=== PATIENT | male | born 1945 | race Caucasian/White ===

== ENCOUNTER 2020-01-01 15:22 | Inpatient (IN) | payer OTHER ==
[~2020-01-01] VITALS: Ht 175.3 cm; Wt 77.6 kg
--- NOTE | ~2020-01-01 | O ---
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 PROCEDURE: Right transmetatarsal foot amputation. SURGEON: Rogers Kong M.D. ANESTHESIA: General. TOURNIQUET TIME: 13 minutes. ESTIMATED BLOOD LOSS: 25 mL. COMPLICATIONS: None. SPECIMENS: Distal foot including bone and soft tissue was sent for pathology. CONDITION UPON LEAVING THE OPERATING ROOM: Stable. INDICATIONS FOR PROCEDURE: The patient is a 74-year-old gentleman with a diabetic foot ulcer. He has had previous amputations of his great toe and second toe. He has had a dorsal wound on his foot with exposed tendon and underlying osteomyelitis of the second metatarsal head. After discussion with him and wound care, we decided for recommended transmetatarsal amputation. DESCRIPTION OF PROCEDURE: Risks, benefits, alternatives, complications were discussed in detail with the patient including, but not limited to risk of anesthesia, risk of continued infection and need for higher level amputation. Informed consent was obtained from the patient. Right foot was appropriately marked in the preoperative holding area. He was already on antibiotics for long-term infection and was brought to the operating room and placed in supine position on operating room table. General anesthesia was induced without [facility] [address] [place] [address] OPERATIVE REPORT Name: JEAN PIERRE HUBBARD Room #: 459-P [facility] IN .R.#: [id number] Admission: 01/01/20 Attend Phys: Ishan Drake MD Discharge: Date of : 41 Report #: [id number] complication. Tourniquet was placed on the right thigh. Right lower extremity was prepped and draped in normal sterile fashion. Timeout was performed properly identifying the patient and procedure as well as the instrumentation. All in the operating room were in agreement. Right lower extremity was elevated, tourniquet was inflated. Tourniquet time was 13 minutes. [place] type incision was then drawn on the skin and a skin incision was made with a 10 blade along this incision for the transmetatarsal amputation. This was taken down through the tissue and then Bovie cautery was used to dissect along the bone, both dorsally and plantarly. Bones were dissected out and cleared of soft tissue with a Can elevator. Transmetatarsal amputation at the metatarsal was then performed with an oscillating sagittal saw. The remainder of the soft tissue was then amputated. The tourniquet was deflated. Hemostasis was obtained with Bovie cautery. The soft tissue was irrigated again and the dorsal flap was closed to the anterior flap with 2-0 Vicryl and 2-0 nylon. A Hemovac drain was placed. Soft dressings were applied. The patient tolerated this procedure well and went to the recovery room under care of anesthesia postoperatively. By: [id number] Rogers Kong MD /nt
[2020-01-01 15:24] VITALS: BP 126/57
[2020-01-01 16:55] LABS: ABSOLUTE NEUTROPHILS 7.1 thou/uL (1.4-8.2); BASOPHILS 0.4 % (0.0-2.0); EOSINOPHILS 5.7 % (0.0-3.0); HEMATOCRIT 31.3 % (42.0-52.0); HEMOGLOBIN 10.7 gm/dL (14.0-18.0); LYMPHOCYTES 15.1 % (24.0-44.0); MCH 29.2 pg (26.0-34.0); MCHC 34.1 g/dL (28.0-37.0); MCV 85.6 fL (80.0-100.0); MONOCYTES 5.3 % (1.0-8.0); PLATELET COUNT 212 thou/uL (150-400); POLYS 73.5 % (36.0-66.0); RBC 3.65 mil/uL (4.50-6.00); RDW 16.5 % (10.5-14.5); WBC 9.6 thou/uL (4.0-11.0)
[2020-01-01 17:15] LABS: CALCIUM 8.3 mg/dL (8.5-10.1); CREATININE 0.9 mg/dL (0.7-1.3)
[2020-01-01 17:16] LABS: POTASSIUM 2.6 mmol/L (3.5-5.1)
[2020-01-01 19:08] VITALS: BP 102/33
[2020-01-01 19:47] VITALS: BP 114/44
[2020-01-01 20:10] VITALS: BP 114/64
--- NOTE | 2020-01-01 20:45 | NUR ---
PT IS A 74 YEAR OLD MALE STAYS AT A [facility] UN[facility]. CAME IN WITH A ULCER ON LEFT FOOT. WOUND CARE CONSULT PICUTURES TAKEN AND IN CHART OF WOUND. PT HAS MULTIPLE SCABS EVERYWHERE AND ITCHY ALL THE TIME THE PT. LUNGS CLEAR ON ROOM AIR. NSR. PLEASANT AND COOPERATIVE. ALERT AND ORIENTED X4. BEDREST. WILL CONTINUE TO MONITOR AND ASSESS PER NURSING AT THIS TIME.
[2020-01-01 21:00] VITALS: BP 114/64
[2020-01-02 00:15] VITALS: BP 111/52
--- NOTE | 2020-01-02 04:20 | NUR ---
PT IS RESTING NO COMPLAINTS NOTED ALERT AND ORIENTED X4. WAS ITCHING BENADRYL GIVEN AND SEEMED TO HELP RESTING LUNGS ARE CLEAR ON ROOM AIR. HAS ULCER ON RIGHT FOOT AND NEEDS WOUND CARE CONSULT. ONGOING NURISNG CARE PLAN IN PROCESS
[2020-01-02 04:45] VITALS: BP 130/59
[2020-01-02 04:52] LABS: CALCIUM 8.3 mg/dL (8.5-10.1); CREATININE 0.9 mg/dL (0.7-1.3); POTASSIUM 3.5 mmol/L (3.5-5.1)
[2020-01-02 08:29] VITALS: BP 136/64
[2020-01-02 13:04] VITALS: BP 127/53
[2020-01-02 16:43] VITALS: BP 115/65
--- NOTE | 2020-01-02 17:54 | NUR ---
ASSESSMENTS AND INTERVENTIONS DOCCUMENTED. NO MAJOR CONCERNS THIS SHIFT. DR. TINOCO SEEING PATIENT. PATIENT ON ABX. PATIENT IS PROGRESSING TOWARDS GOALS AT THIS TIME EVIDENCE BY BEING DOWNGRADED TO MED SURG STATUS.
[2020-01-02 20:30] VITALS: BP 105/43
--- NOTE | 2020-01-03 01:31 | NUR ---
ASSESSMENTS CHARTED, MEDS CHARTED GIVEN. SINUS ALEYDA ON TELEMETRY, ANTIBIOTIC TREATMENTS BEING GIVEN IV. PATIENT IS A FEEDER DURNG DAY SHIFT. INCONTINENT. OPEN WOUNDS ON RIGHT FOOT. PATIENT TURNED DURING SHIFT CHARTED BY CURTAIN FELLER BLINDSTITCH. FALL PRECAUTIONS IN PLACE DURING SHIFT.DENIED PAIN.
[2020-01-03 04:45] VITALS: BP 137/52
[2020-01-03 08:08] VITALS: BP 140/63; BP 143/63
[2020-01-03 08:14] VITALS: BP 124/57
--- NOTE | 2020-01-03 11:40 | NUR ---
ASSUMED CARE AT SHIFT CHANGE ALERT AND ORIENTED X4, AND FORGETFUL. SB ON THE MONITOR, AND OTHER VSS.Q2 POSITIONED, AND PATIENT MED. BM THIS MORNING. REPORT GIVEN TO DASIA JORGE AND PATIENT TRANSFERED TO RM 447.
--- NOTE | 2020-01-03 15:36 | NUR ---
PT IS AOX4, VSS, NO /CO PAIN AT THIS TIME. CALL LIGHT IN REACH. NURSE HELPED PT EAT AT LUNCH, HE ATE 40%. FALL PRECAUTIONS IN PLACE. WILL CONTINUE TO MONITOR.
[2020-01-03 22:50] VITALS: BP 139/66
[2020-01-04 04:20] VITALS: BP 136/78
--- NOTE | 2020-01-04 07:45 | NUR ---
PT LYING IN BED. INCONTINENT. DENIES PAIN. RESTING COMFORTABLY. NO NEEDS VOICED. CALL LIGHT WITHIN REACH. FREQUENT OBSERVATION.
[2020-01-04 08:27] VITALS: BP 144/73
[2020-01-04 10:45] LABS: MAGNESIUM 1.4 mg/dL (1.8-2.4); PHOSPHORUS 2.5 mg/dL (2.5-4.9)
--- NOTE | 2020-01-04 16:06 | NUR ---
ON-GOING ASSESSMENT: CM REVIEWED CHART. PT REMAINS ON IV ANBX AND WOUND CARE IS TO SEE PATIENT ABOUT POSSIBLE NEED FOR DEBRIDEMENT. CM WILL CONTINUE TO FOLLOW TO ASSIST NEEDED.
--- NOTE | 2020-01-04 17:01 | NUR ---
PT ASSESSED AT START OF SHIFT. DR. TINOCO IN TO SEE PT THIS AM. WOUND CONSULT DONE. RT FOOT W/ EXPOSED 2ND TENDON. XEROFORM ROSARIO/ W/ 4X4. PT HAS C/O OF WHOLE BODY ITCHING FOR SEVERAL MONTHS AND SCRATCHES HIS SKIN ALL OVER. EATING AND DRINKING FAIR BUT NEEDS ASSIST.
--- NOTE | 2020-01-04 23:39 | NUR ---
ASSESSMENT COMPLETED.PT ALERT AND ORIENTED. CLEARLY IN DISTRESS ITCHING ALL OVER CAUSING SOME BLEEDING AND HUGE SCABS IN SOME AREAS. VSS. AFEBRILE. IV ABTS RUNNING. DRINKING WATER OKAY. IINCONTINENT OF B/B. BM TONIGHT. BOTTOM EXCORIATED, Z-GUARD AND REPOSITIONING PROVIDED.THERESA HEELS OFF LOADED ON PRAFO BOOTS.MEDICINAL CREAM APPLIED ALL OVER BODY FOR CONCERNS FOR SCABIES.TO TAKE SHOWER AFTER 12 HRS. R FOOT DRSG C/D/I. AWAITING ROOM IN [facility] FOR TRANSFER. HS BS OF 203, 4 UNITS GIVEN. PT HAS NO FURTHER CONCERNS AT THIS TIME.CALL LIGHT WITHIN REACH.
[2020-01-05 01:30] VITALS: BP 138/72
--- NOTE | 2020-01-05 05:14 | NUR ---
ASSUMED CARE OF PT FROM 4S AT 0045HRS. PT AOX4 AND LETS NEEDS BE KNOWN. FALL PRECAUTION IN PLACE. PT PLACED IN ISOLATION FOR SCABIES CONCERN. PT RUNNING SR ON TELE. AGREE WITH PREVIOUS RN ASSESSENT. PT COMPLAINS OF ITCHING ALL OVER. IV ABX CONTINUED. VSS AND NO S/S OF ACUTE DISTRESS. [facility]
--- NOTE | 2020-01-05 12:00 | NUR ---
PT ADMITTED RELATED TO ACUTE OSTEOMYELITIS. CM REVIEWED CHART AND SPOKE WITH CARE TEAM. CM CALLED AND SPOKE WITH PT'S DTR THIS DAY. SHE INDICATED THAT PT RESIDES AT [facility]. SHE INDICATED THAT PT HAD NEEDED ASSISTANCE WITH ADLS AND MOBILITY PREFORM MACHINE OPERATOR. SHE INDICATED THAT PT IS WC BOUND. SHE INIDCATED THAT PT HAD BEEN ON SERVICE WITH [facility] PREFORM MACHINE OPERATOR. PT'S DTR INDICATED THAT SHE ANTICIPATES PT RETURNING TO [facility] ONCE MEDICALLY STABLE. CM CALLED THE FACILITY AND THEY CONFIRMED THE ABOVE. FACILITY INDICATED THAT THEY DON'T ADMINISTER IV ABX AND THAT THEY DO REQUIRE A COVID TEST PRIOR TO PT RETURNING. TEST TO BE ORDERED. CM CALLED [facility] AND THEY WILL FAX REVOCATION PAPERWORK ONCE OBTAINED FROM PT'S DTR. PT IS ON IV VANC AND ZOSYN . PT HAVING MRI. THERE HAD BEEN TALK OF POSSIBLE DEBRIDEMENT. CLINICAL UPDATE TO BE FAXED TO [facility]. CM TO FOLLOW INIDCATED WITH DC PLANNING.
[2020-01-05 17:43] LABS: CALCIUM 8.2 mg/dL (8.5-10.1); CREATININE 0.7 mg/dL (0.7-1.3); POTASSIUM 3.4 mmol/L (3.5-5.1)
[2020-01-05 20:27] VITALS: BP 118/49
--- NOTE | 2020-01-06 01:02 | NUR ---
ASSUMED CARE OF PT AT 1900. PT IS A/O X4 WITH SOME FORGETFULLNESS AT TIMES. PT C/O ITCHING ALL OVER. PRN KHALIDA PROVIDED WITH A CHANGE OF SHEETS. DR VISITED THIS EVENING. NO NEW ORDERS GIVEN AT THIS TIME. PT CONTINUES ON ISOLATION FOR SCABIES. DRSGS TO RIGHT FOOT ARE C/D/I. AT THIS TIME, PT APPEARS TO BE SLEEPING LYING IN HIS BED. FALL PRECAUTIONS ARE IN PLACE, CALL LIGHT IS WITHIN REACH.
[2020-01-06 10:16] VITALS: BP 114/61
--- NOTE | 2020-01-06 15:20 | NUR ---
PT CONTINUES ON IV VANC AND ZOSYN. ORTHO WAS CONSULTED AND INDICATED THAT THEY ANTICIPATE SOME SORT OF SURGICAL INTERVENTION NEEDING TO BE DONE. COVID SWAB WAS ORDERED. CM CALLED PT'S AL TO SEE IF THEY COULD FAX DPOA PAPERWORK OVER.. NO ANSWER AT NURSES STATION. CM TO CALL BACK. CM TO FOLLOW INDICATED WITH DC PLANNING.
[2020-01-06 18:00] VITALS: BP 112/52
[2020-01-06 21:00] VITALS: BP 118/62
--- NOTE | 2020-01-06 23:43 | NUR ---
PT ALERT AND ORIENTED X 4, FORGETFUL. INCONT OF STOOL X 1. BLOOD SUGAR 166 AT HS. INSULIN GIVEN ORDERED. DRESSING TO RIGHT FOOT C/D/I. PT HAS SCRATCHES AND SCABS OVER BODY. TRIAMCINOLONE CREAM STARTED AT HS. PT NPO AFTER MIDNIGHT FOR SURGERY TOMORROW. DOES NOT WANT TO SIGN CONSENT UNTIL HE SPEAKS WITH DOCTOR. PT DENIES PAIN OR DISCOMFORT. BED ALARM ON FOR SAFETY. PT CHECKED ON HOURLY ROUNDS.
[2020-01-07 05:56] LABS: HEMATOCRIT 31.9 % (42.0-52.0); HEMOGLOBIN 10.3 gm/dL (14.0-18.0); MCH 28.3 pg (26.0-34.0); MCHC 32.4 g/dL (28.0-37.0); MCV 87.6 fL (80.0-100.0); RBC 3.64 mil/uL (4.50-6.00); RDW 16.8 % (10.5-14.5); WBC 7.2 thou/uL (4.0-11.0)
[2020-01-07 12:34] VITALS: BP 130/60
[2020-01-07 15:14] VITALS: BP 120/63
--- NOTE | 2020-01-07 17:45 | NUR ---
PATIENT ALERT AND ORIENTED, DENIES PAIN. CONTINUES TO ITCH THROUGHOUT HIS BODY AND WELTS NOTED. VITALS STABLE. DRESSING ON FOOT CHANGED EARLIER TODAY. TOLERATING DIET WELL W/O NAUSEA. PLAN: SURGERY ON FOOT TOMORROW?
[2020-01-07 20:09] VITALS: BP 119/68
[2020-01-08] VITALS (14 sets, daily range): BP systolic 94–135; BP diastolic 46–72
--- NOTE | 2020-01-08 05:33 | NUR ---
ASSUMED PT CARE AROUND 1930. AXOX2 WITH CONFUSION. FOLLOWS VERBAL COMMANDS WELL. PER PT, ITCHING COMES AND GOES. KEPT NPO POST MN FOR SURGERY IN AM WITH . VSS. NO S/S ACUTE DISTRESS NOTED OR REPORTED AT THIS TIME. WILL CONT TO MONITOR FOR ANY CHANGES IN CONDITION.
[2020-01-08 06:21] LABS: HEMOGLOBIN 9.3 gm/dL (14.0-18.0); MCH 29.2 pg (26.0-34.0); MCHC 33.2 g/dL (28.0-37.0); MCV 87.8 fL (80.0-100.0); RBC 3.19 mil/uL (4.50-6.00); RDW 16.4 % (10.5-14.5); WBC 6.9 thou/uL (4.0-11.0)
[2020-01-08 06:23] LABS: CALCIUM 8.4 mg/dL (8.5-10.1); CREATININE 0.8 mg/dL (0.7-1.3); POTASSIUM 3.8 mmol/L (3.5-5.1)
--- NOTE | 2020-01-08 09:56 | NUR ---
PT ARRIVED TO UNIT FROM SURGERY. PT AWAKE, NOT VERY TALKATIVE. PT VS TAKEN. PT HAS RT FOOT WRAPPED IN NILDA WRAP AND HAS A MED HEMOVAC ATTACHED WITH DARK BLOOD IN TUBING. PT DENIES ANY PAIN AT THIS TIME. RT FOOT ELEVATED UP ON X2 PILLOWS. NO SIGNS OF PAIN WITH MOVEMENT. PT TOLERATING ICE CHIPS. PT HAS SCRATCHES TO ARMS BILATERALY. PT STATED HE THINKS HE IS ALLERGIC TO SOMETHING. PT STATED HE HAS ITCHED FOR 6 MONTHS AND ITS WORSE THAN HAVING PAIN. PT ENCOURAGED NOT TO SCRATCH ARMS. ADM BENADRYL 25MG PO FOR ITCHING. PT ON ROOM AIR WITH SAT 93%. WILL CON. TO MONITOR.
--- NOTE | 2020-01-08 12:00 | NUR ---
PT NEEDED ASSITANCE WITH CUTTING UP FOOD. PT ABLE TO FEED SELF. NOTICED HIS HANDS ARE STIFF AND NOT VERY MOBILE. PT TOLERATING FOOD AND WATER, STILL NO PAIN. ITCHING IS BETTER.
--- NOTE | 2020-01-08 15:06 | NUR ---
PT HAD RIGHT FOOT TRANSMETATARSAL AMPUTATION THIS MORNING. CM CALLED AND SPOKE WITH PT'S DTR WHO IS HIS GUARDIAN (PAPERWORK NOW ON CHART.) SHE INDICATED THAT LAST TIME PT NEEDED WC AND PROLONGED ABX HE WENT TO [facility]. SHE INDICATED THAT SHE IS AGREEABLE WITH PT GOING THERE AGAIN IF PT NEEDS SERVICES UPON DC. SHE WAS AGREEABLE WITH REFERRAL BEING SENT TO [facility] FOR REVIEW FOR POSSIBLE ADMISSION. CM TO FOLLOW INDICATED WITH DC PLANNING. NO WEEKEND DC ANTICIPATED PT CONTINUES ON VANC AND ZOSYN AND WC.
--- NOTE | 2020-01-08 21:52 | NUR ---
CIRITICAL VANCO TROUGH RESULTS REPORTED TO , ID, COVERING FOR . PER NEW ORDERS RECEIVED AND PER MD, NEW VANCO TROUGH ORDERED FOR SUN EVENING DOSE.
[2020-01-09 01:01] VITALS: BP 131/71
--- NOTE | 2020-01-09 01:15 | NUR ---
ASSUMED PT CARE AROUND 1930. AXOX3 WITH SHOSHONE-PAIUTE AND FORGETFULNESS. S/P R FOOT TRANSMET AMPUTATION. HEMOVAC IN PLACE. DRESSING CDI. VSS. NO S/S ACUTE DISTRESS NOTED OR REPORTED AT THIS TIME. WILL CONT TO MONITOR FOR ANY CHANGES IN CONDITION.
[2020-01-09 03:27] VITALS: BP 106/61
[2020-01-09 05:48] LABS: CALCIUM 8.4 mg/dL (8.5-10.1); CREATININE 0.8 mg/dL (0.7-1.3); POTASSIUM 4.1 mmol/L (3.5-5.1)
[2020-01-09 06:09] LABS: HEMATOCRIT 25.5 % (42.0-52.0); HEMOGLOBIN 8.4 gm/dL (14.0-18.0); MCH 28.9 pg (26.0-34.0); MCV 87.5 fL (80.0-100.0); RBC 2.91 mil/uL (4.50-6.00); RDW 16.6 % (10.5-14.5); WBC 8.1 thou/uL (4.0-11.0)
[2020-01-09 08:09] VITALS: BP 122/58
--- NOTE | 2020-01-09 14:07 | NUR ---
PT CARE ASSUMED AT 0700. A&Ox3. FORGETFUL. ISOLATION (MRSA). EXTERNAL MALE CATHETER IN PLACE. POST OP DAY 1. HEMOVAC IN PLACE. LUNGS DIMISHED. INCONTINENT TO BOWEL AND BLADDER. NSR WITH PVC ON THE MONITOR. ACHS WITH COVERAGE. DNR. ON RA. PT VERY QUIET AND NOT CALLING OUT FOR ANYTHING. RN TRIED TO COMMUNICATE WITH PT TO RAISE HIS SPIRITS WITH NO RESULT. PT REFUSED HIS OITMENT YET SCRATCHES HIS SKIN. FALL PROTOCOL IN PLACE. ISOLATION PROTOCOL IN PLACE. CALL LIGHT IN REACH. WILL CONTINUE TO MONITOR.
[2020-01-09 17:03] VITALS: BP 108/56
[2020-01-09 19:39] VITALS: BP 118/63
[2020-01-10 06:27] LABS: HEMOGLOBIN 8.6 gm/dL (14.0-18.0); MCHC 33.1 g/dL (28.0-37.0); MCV 87.6 fL (80.0-100.0); RBC 2.97 mil/uL (4.50-6.00); RDW 16.9 % (10.5-14.5); WBC 7.5 thou/uL (4.0-11.0)
[2020-01-10 06:57] LABS: CALCIUM 8.7 mg/dL (8.5-10.1); CREATININE 0.6 mg/dL (0.7-1.3); POTASSIUM 4.1 mmol/L (3.5-5.1)
--- NOTE | 2020-01-10 07:54 | NUR ---
Assumed pt care at 1900. Pt's A/O3 w/forgetfulness noted but able to make needs known. Denies pain on assessment. VSS.Incontinent of B&B,condom catheter applied,moisture barrier applied to periarea d/t redness. Pt continues to scratch on upper body especially when turned and hesitant to have Triamcinole applied but later agreeable to. POD #2 DSG on Right foot C/D/I,Prafo boot on Left foot. NSR on telemetry. Fall precautions in place. Remains on isolation for MRSA.
[2020-01-10 08:39] VITALS: BP 120/70
[2020-01-10 15:42] VITALS: BP 122/60
--- NOTE | 2020-01-10 19:48 | NUR ---
ASSUMED PT CARE THIS AM. PT A&OX3, VITAL SIGNS STABLE. CONDOM CATH IN USE, WORKS WELL FOR PT. PT ON TELE IS SR. PT TURNED AND REPOSITIONED Q2H. WOUND DRESSING CHANGED ON FOOT, DRESSING WAS C/D/I. HEMOVAC WAS DISCONTINUED, NO DRAINAGE. PT SLEPT MAJORITY OF SHIFT. CALLED WHEN NEEDED. NO COMPLAINTS OF PAIN FROM PT. ENDORSED TO NIGHT NURSE.
[2020-01-10 19:57] VITALS: BP 107/62
--- NOTE | 2020-01-10 22:20 | NUR ---
CRITICAL VANC TROUGH REPORTED TO SCOOP DRIVER FOR . NEW ORDER FOR 700MG Q12 RECEIVED. PER , NO VAN TROUGH SCHEDULED AT THIS TIME.
--- NOTE | 2020-01-11 03:09 | NUR ---
ASSUMED PT CARE AROUND 1930. AXOX3 PLEASANTLY CONFUSED. R FOOT DRESSING CDI. HEEL PROTECTOR BOOTS IN PLACE. VSS. NO S/S ACUTE DISTRESS NOTED OR REPORTED AT THIS TIME. WILL CONT TO MONITOR FOR ANY CHANGES IN CONDITION.
[2020-01-11 10:30] VITALS: BP 120/63
--- NOTE | 2020-01-11 16:30 | NUR ---
CM CALLED TO FOLLOW UP ON REFERRAL SENT TO [facility] LAST WEEK AND [facility] INDICATED THAT THEY ARE CLOSED TO NEW ADMISSIONS AT THIS TIME FOR AT LEAST ANOTHER WEEK. YOAN CALLED AND NOTIFIED PT'S DTR/DPOA AND SHE ASKED THAT REFERRAL BE SENT TO [facility] FOR REVIEW FOR POSSIBLE ADMISSION. CM FAXED REFERRAL TO [facility] AND SPOKE WITH JOSEPH IN ADMISSIONS THERE GAVE HER A HEADS UP THAT REFERRAL WAS GOING. CM TO FOLLOW INDICATED WITH DC PLANNING.
[2020-01-11 19:29] VITALS: BP 136/61
--- NOTE | 2020-01-11 19:43 | NUR ---
ASSUMED CARE AT 0700. PT A/O X3, FORGETFUL BUT PLESANT THROUGHOUT SHIFT. PT DENIES PAIN, MEDS GIVEN PER MAY, TRIM. CREAM APPLIED FOR ITCHING-GAVE RELIEF. WOUND CARE COMPLETE PER DR. MENDOZA. PT HAD GOOD APPETITE. HAD 3 SOFT, UNFORMED BM'S TODAY, INCONTIENT. CONDOM CATH REMAINS IN PLACE WITH GOOD OUTPUT. VSS. ASSSESSMENTS PER CHART. REPORT GIVEN TO DARRION CABAN RN.
--- NOTE | 2020-01-12 04:10 | NUR ---
ASSUMED PT CARE AROUND 1930. PLEASANTLY CONFUSED. R FOOT DRESSING REDONE. VSS. NO S/S ACUTE DISTRESS NOTED OR REPORTED AT THIS TIME. WILL CONT TO MONITOR FOR ANY CHANGES IN CONDITION.
[2020-01-12 06:12] LABS: HEMATOCRIT 27.1 % (42.0-52.0); MCH 29.4 pg (26.0-34.0); MCHC 33.4 g/dL (28.0-37.0); RBC 3.08 mil/uL (4.50-6.00); RDW 16.8 % (10.5-14.5); WBC 7.3 thou/uL (4.0-11.0)
[2020-01-12 06:34] LABS: CREATININE 0.9 mg/dL (0.7-1.3); POTASSIUM 4.2 mmol/L (3.5-5.1)
[2020-01-12 08:00] VITALS: BP 94/52
[2020-01-12 11:41] VITALS: BP 103/61
--- NOTE | 2020-01-12 12:37 | NUR ---
PT was pleasant and cooperative. PT did not complain of pain and showed no new signs indicative of an infection.
--- NOTE | 2020-01-12 12:44 | NUR ---
I have reviewed the student's documentation.
--- NOTE | 2020-01-12 15:28 | NUR ---
YOAN CALLED AND SPOKE WITH JOSEPH AT [facility] THIS AFTERNOON SHE INDICATED THEY HAD RECEIVED REFERRAL AND THAT HER DON WAS REVIEWING. SHE INDICATED SHE WOULD CALL CM BACK WITH A DETERMINATION. CM FOLLOWING REGARDING DC PLANNING.
--- NOTE | 2020-01-12 17:06 | PATH ---
[facility] [address] [place] [address] PATHOLOGY RPT PROCEDURE Name: LUIS ARMANDO HUBBARD Room #: 459-P ADM IN M.R.#: [id number] Admission: 01/01/20 Date of : 41 Discharge: Report #: [id number] Path Case #: [id number] [facility] Accession Number: [id number] . 01 Material submitted: . foot - RIGHT TRANSMETATARSAL AMPUTATION. Modifiers: right . 01 Clinician provided ICD-10: M86.171 E87.6 . 01 Clinical history: . INFECTED OPEN WOUND RIGHT FOOT AND TOES, OTHER ACUTE OSTEOMYELITIS RIGHT ANKLE AND FOOT, HYPOKALEMIA . 02 Diagnosis: Foot, right, transmetatarsal amputation: - Skin and subcutaneous tissue showing ulceration along with extensive gangrenous necrosis. - Bone margins on all metatarsals viable and unremarkable. - Skin margin viable. (IUV:pit 01/12/2020) QTP 01/12/2020 1452 Local . 02 Electronically signed: . Bryanna Kilpatrick MD, Pathologist NPI- [id number] . 01 Gross description: . The specimen is received in formalin, labeled "Luis Armando Hubbard, right transmetatarsal amputation". Received is an amputated forefoot measuring 9.7 cm from medial to lateral, 9.2 cm from proximal to distal, and 3.5 cm from dorsal to plantar. The first and second toes have previously been amputated. Toes 3 through 5 are present. The bone margins are blunt in appearance, consistent with transection, and appear grossly unremarkable. The nails are present on toes 3 through 5 and display a light manzo and thickened to flaky appearance. On the dorsal aspect of the specimen between toes 2 and 3, there is a poorly circumscribed, irregular in contour and light manzo to trivedi-black lesion measuring 4.8 x 1.6 cm, which grossly approaches the skin margin. The skin margin immediately adjacent to the lesion is inked green. The bone margins are inked as follows: Metatarsal 1-black, metatarsal 2-blue, metatarsal 3-yellow, metatarsal 4-red, metatarsal 5-orange. The specimen is submitted representatively as follows: . A1 pharmacy services representative sections of skin lesion to show [place] [address] PATHOLOGY RPT PROCEDURE Name: LUIS ARMANDO HUBBARD Room #: 459-P ADM IN M.R.#: [id number] Admission: 01/01/20 Date of : 41 Discharge: Report #: [id number] Path Case #: [id number] A2 longitudinal cross-section through first metatarsal bone margin, following decalcification A3 longitudinal cross-section through second metatarsal bone margin, following decalcification A4 longitudinal cross-section through third metatarsal bone margin, following decalcification A5 longitudinal cross-section through fourth metatarsal bone margin, following decalcification A6 longitudinal cross-section through fifth metatarsal bone margin, following decalcification. . Gross photographs are taken. (CAA; 01/11/2020) QAC/QAC 01/11/2020 1101 Local . 02 Pathologist provided ICD-10: L97.519, I96 . 02 CPT . 987474, 222119 Specimen Comment: A courtesy copy of this report has been sent to [phone], [phone] Specimen Comment: [phone] Specimen Comment: Report sent to ,DR CLAY / DR ROQUE Performed at: [address] [facility], [place] [id number] MD Gabriel Castillo MD Phone: [phone] Performed at: [address] [facility] [id number] MD Bryanna Kilpatrick MD Phone: [phone]
[2020-01-12 20:19] VITALS: BP 104/58
--- NOTE | 2020-01-13 04:21 | NUR ---
ASSUMED CARE OF PT AT 1900. PT IS A/O X3 WITH FORGETFULLNESS. PT DENIES ANY PAIN OR DISCOMFORT. VSS. DRSGS TO RIGHT FOOT IS C/D/I. NO C/O SEVERE ITCHING. PT AT THIS TIME IS LYING IN HIS BED AND APPEARS TO BE SLEEPING. PRAFO BOOTS AND FALL PRECAUTIONS ARE IN PLACE, CALL LIGHT IS WITHIN REACH. WILL CONTINUE TO MONITOR.
[2020-01-13 07:20] VITALS: BP 116/55
--- NOTE | 2020-01-13 13:12 | NUR ---
Assumed pt care at 7am.Pt in bed sound asleep but arousable.Assessment completed.Vss. but pt was difficult to work with and wanted do things at his time.Dr Lira here,no new order noted.Iv team for picc line placement but pt refused signing consent .Insulin given with lunch.Drsg intact on rt foot.Will continue to monitor.
--- NOTE | 2020-01-13 15:13 | NUR ---
CM CALLED AND SPOKE WITH [facility] THIS DAY WITH NO RESPONSE OF THIS NOTE. CM ASKED DC CEPHALOMETRIC TRACER TO FAX REFERRAL TO [facility] THAT HAD BEEN DTR. DPOA'S FIRST CHOICE AND THEY WILL BE OPENING BACK UP FOR ADMISSIONS TOMORROW. CM TO FOLLOW INDICATED WITH DC PLANNING.
[2020-01-13 15:30] VITALS: BP 101/55
--- NOTE | 2020-01-13 16:13 | NUR ---
FAXED REFERRAL TO [facility] SPOKE WITH CAROLINE IN ADM SHE RECEIVED REFERRAL AND WILL ACCEPT FOR SKILLED WILL LET US KNOW TOMORROW IF THEY CAN ACCEPT ADMITS. DP TO FOLLOW.
--- NOTE | 2020-01-13 16:42 | NUR ---
VASCULAR ACCESS RECIEVED ORDER FOR PICC. SPOKE WITH SIL FORMAN, PT REFUSING TO SIGN CONSENT UNTIL SPEAKS TO DR TINOCO.
--- NOTE | 2020-01-14 01:38 | NUR ---
VSS-AFEBRILE. IV WAS PULLED OUT BY ACCIDENT, PATIENT REFUSED AT THIS TIME TO HAVE ANOTHER IV PLACED. ZOSYN WAS NOT FULLY INFUSED BEFORE IV WAS PULLED OUT.
[2020-01-14 07:05] VITALS: BP 109/55
--- NOTE | 2020-01-14 11:58 | NUR ---
THIS PATIENT HAS REFUSED PICC PLACEMENT- DR. TINOCO IS AWARE AND NOTED IN PROGRESS NOTE. PICC ORDER CANCELLED, IF THIS PATIENT DECIDES TO AGREE TO PLACEMENT AND ABLE TO SIGN CONSENT WE WILL RETURN TO PLACE THE LINE
--- NOTE | 2020-01-14 12:18 | NUR ---
[facility] IS ABLE TO ACCEPT PT FOR ADMISSION TODAY. WE ARE AWAITING HIS PICC PLACEMENT FOR IV ABX UPON DC. CM CALLED AND LEFT A VM WITH PT'S DTR/GUARDIAN AND I'M AWAITING RESPONSE. ANTICPATE DC TO [facility] THIS DAY. CHART COPY ORDERED. ORDERS TO BE FAXED AND TRANSPORT TO BE ARRANGED.
--- NOTE | 2020-01-14 12:53 | NUR ---
Assumed pt care at 7am.Pt in bed most of the time this shift with prafo boots on bilat.Assessment completed.vss.Dr Lira here,informed pt about possible dc to snf today and the need for picc line placement.Pt signed consent for picc line and iv team notified.Covid 19 will be done later today.Vanc trough done few days ago was 21.Dr Mccoy notified and message left.Vanc on hold till hear from hime.Pt in bed eating at present.Fall bundle in place. Will continue to monitor.
[2020-01-14 15:17] VITALS: BP 126/73
--- NOTE | 2020-01-14 15:56 | NUR ---
CONSULTED TO PLACE A PICC FOR A PATIENT DICHARGING WITH LINE- THE PATIENT DECIDED TO SIGN THE CONSENT AND ALLOW PLACEMENT. ORDER AND CONSENT NOTED. THE PROCEDURE WELL BENIFITS AND RISKS FOR DVT AND INFECTION WERE DISCUSSED AND HE VERBALIZED UNDERSTANDING. THE LEFT UPPER ARM BASILIC WAS WIDLEY PATENT. A #4F SINGLE LUMEN POWER PICC WAS PLACED PER HOSPITAL POLICY AFTER A BEDSIDE TIMEOUT WAS COMPLETED. LINE WAS TRIMMED TO 47CM AND ADVANCED WITHOUT DIFFICULTY. LINE WAS CONFIRMED WITH A CHEST XRAY AT THE [facility]. 3W STAFF NOTIFIED THAT LINE WAS RELEASED FOR USE
[2020-01-14 19:31] VITALS: BP 110/58
[2020-01-15 07:48] VITALS: BP 105/65
[2020-01-15 09:46] LABS: HEMATOCRIT 27.9 % (42.0-52.0); HEMOGLOBIN 9.2 gm/dL (14.0-18.0); MCH 28.9 pg (26.0-34.0); MCV 87.6 fL (80.0-100.0); RBC 3.18 mil/uL (4.50-6.00); RDW 16.5 % (10.5-14.5); WBC 7.5 thou/uL (4.0-11.0)
[2020-01-15 09:52] LABS: CALCIUM 8.8 mg/dL (8.5-10.1); CREATININE 1.1 mg/dL (0.7-1.3); POTASSIUM 4.3 mmol/L (3.5-5.1)
[2020-01-15 13:15] VITALS: BP 146/48; BP 157/59
[2020-01-15] MEDS ORDERED: LORATIDINE 10 M10 M1 PO (13:46)
[2020-01-15] MEDS ORDERED: TRIAMCINOLONE A80 G2 TOP (13:47)
[2020-01-15] MEDS ORDERED: CARBIDOPA-LEVO1 EA11 PO (13:47)
[2020-01-15] MEDS ORDERED: ZOSYN 4.54.5 GM/101 IV (13:48)
[2020-01-15] MEDS ORDERED: VANCOMYCIN1 GM/2002 IV (13:49)
--- NOTE | 2020-01-15 15:32 | NUR ---
PT IT TO DISCHARGE TO [facility] THIS DAY. CHART COPY ORDERED. ORDERS FAXED. [facility] TRANSPORT IS ARRANGED FOR 1630. PT'S DTR/GUARDIAN IS AWARE AND AGREEABLE. NURSE GIVEN NUMBER FOR REPORT. NO OTHER CM INTERVENTION INDICATED. CASE CLOSED.
--- NOTE | 2020-01-15 20:20 | NUR ---
PT A&OX4, VSS, DENIED PAIN. PATIENT DISCHARGED TO FACILITY. REPORT GIVEN, ALL BELONGINGS WITH PATIENT. RIGHT FOOT BANDAGED, C/D/I. PATIENT REPOSITIONED, CONDOM CATHETER REMOVED, IV AND TELE MONITOR REMOVED. NO SIGNS OF DISTRESS.
== END 2020-01-15 16:35 | DRG 617 ==
LOC: ER 15:22 → EROBS 18:16 → 2N 18:16 → 4S 01-03 11:50 → 4W 01-05 01:02
PROVIDERS: Anesthesiology; Emergency Medicine; Hospitalist; Nurse Practitioner Family; ADMIT Hospitalist; ATTEND Hospitalist
PROC: 0Y6M0ZB Detachment at Right Foot, Partial 2nd Ray, Open Approach (ICD-10-PCS; principal; 2020-01-08)
PROC: 0Y6M0ZD Detachment at Right Foot, Partial 4th Ray, Open Approach (ICD-10-PCS; principal; 2020-01-08)
PROC: 0Y6M0ZF Detachment at Right Foot, Partial 5th Ray, Open Approach (ICD-10-PCS; principal; 2020-01-08)
PROC: 0Y6M0Z9 Detachment at Right Foot, Partial 1st Ray, Open Approach (ICD-10-PCS; principal; 2020-01-08)
PROC: 0Y6M0ZC Detachment at Right Foot, Partial 3rd Ray, Open Approach (ICD-10-PCS; principal; 2020-01-08)
PROC: 02HV33Z Insertion of Infusion Device into Superior Vena Cava, Percutaneous Approach (ICD-10-PCS; 2020-01-14)
DX: E11.69 Type 2 diabetes mellitus with other specified complication (principal); M86.171 Other acute osteomyelitis, right ankle and foot; L97.516 Non-pressure chronic ulcer of other part of right foot with bone involvement without evidence of necrosis; E87.6 Hypokalemia; L28.0 Lichen simplex chronicus; I10 Essential (primary) hypertension; E11.42 Type 2 diabetes mellitus with diabetic polyneuropathy; F03.90 Unspecified dementia, unspecified severity, without behavioral disturbance, psychotic disturbance, mood disturbance, and anxiety; F32.9 Major depressive disorder, single episode, unspecified; D64.9 Anemia, unspecified; G47.00 Insomnia, unspecified; L29.9 Pruritus, unspecified; E11.51 Type 2 diabetes mellitus with diabetic peripheral angiopathy without gangrene; S90.811A Abrasion, right foot, initial encounter; G20 Parkinson's disease; F02.80 Dementia in other diseases classified elsewhere, unspecified severity, without behavioral disturbance, psychotic disturbance, mood disturbance, and anxiety; B95.62 Methicillin resistant Staphylococcus aureus infection as the cause of diseases classified elsewhere; Z20.828 Contact with and (suspected) exposure to other viral communicable diseases; Z79.899 Other long term (current) drug therapy; X58.XXXA Exposure to other specified factors, initial encounter; Y93.89 Activity, other specified; Y92.89 Other specified places as the place of occurrence of the external cause; Y99.8 Other external cause status
CPT/HCPCS: 10045; 10081; 10102; 27000; 50010; 50101; 50386; 50951; 56525; 56526; 56528; 57091; 57103; 57180; 62110; 62900; 70005